=== PATIENT | female | born 1980 | race Caucasian/White ===

== ENCOUNTER 2017-01-05 21:47 | Emergency (ER) | payer BC ==
[~2017-01-05] VITALS: Ht 165.1 cm; Wt 107.0 kg
--- OUTSIDE RECORDS SUMMARY | 2017-01-05 21:52 | XMS REPORT | Continuity Of Care Document ---
Author Author [facility] Organization [facility] Address [address] [place] [address] Phone Care Team Providers Care Digital Media Manager Name Role Phone UNASSIGNED, PHYSICIAN Unavailable Unavailable LESVIA DELACRUZ, E PP OTTONIEL DELACRUZ, S AT Results Lab Results Visit/Account #[id number] (January 26, 2015 12:13pm - January 26, 2015 2:05pm) Test Result Date/Time UA WITH SCREEN FOR CULTURE 5778-6: COLOR,URINE YELLOW January 26, 2015 12:40pm 76423-3: CLARITY,URINE SL CLOUDY January 26, 2015 12:40pm GLUCOSE, URINE(NEGATIVE MG/DL) NEGATIVE MG/DL January 26, 2015 12:40pm URINE BILIRUBIN(NEGATIVE) NEGATIVE January 26, 2015 12:40pm 88227-9: KETONES,URINE(NEGATIVE MG/DL) NEGATIVE MG/DL January 26, 2015 12:40pm 2965-2: URINE SPECIFIC GRAVITY(1.001-1.035) 1.025 January 26, 2015 12:40pm 01851-7: URINE BLOOD(NEGATIVE) NEGATIVE January 26, 2015 12:40pm 2756-5: URINE PH(5.0-9.0) 7.0 January 26, 2015 12:40pm URINE PROTEIN(Less than 20 MG/DL) NEGATIVE MG/DL January 26, 2015 12:40pm URINE UROBILINOGEN(0.2-1.0 MG/DL) 0.2 MG/DL January 26, 2015 12:40pm URINE NITRITE(NEGATIVE) NEGATIVE January 26, 2015 12:40pm 5799-2: LEUKOCYTE ESTERASE ,URINE(NEGATIVE) NEGATIVE January 26, 2015 12:40pm 630-4: URINE CULTURE NOT INDICATED January 26, 2015 12:40pm URINE MICROSCOPIC REQUIRED NO January 26, 2015 12:40pm URINE HCG, QUALITATIVE 2106-3: URINE HCG, QUALITATIVE(NEGATIVE) NEGATIVE January 26, 2015 12:40pm Allergies and Adverse Reactions Allergies and Adverse Reactions Patient Unit Number: [id number] Agent Type Reaction Severity Status NO KNOWN ALLERGIES Drug Allergy Unknown Unknown Active Problem List Problem List Visit/Account #[id number] (January 26, 2015 12:13pm - January 26, 2015 2:05pm) Acute Problems: Code/Condition Comments Documented Start Date Documented Resolved Date Code (s) Back pain with sciatica ICD10: M54.30 Back pain with sciatica ICD9: 724.3 Back pain with sciatica SNOMED: 141881229 Back pain with sciatica Plan of Care Plan Of Care Visit/Account #[id number] (January 26, 2015 12:13pm - January 26, 2015 2:05pm) Patient Instructions Take the Flexeril as directed. Take the [place] as directed. Take prednisone as directed, starting tomorrow. Followup with your regular Dr. for further management, possible MRI if pain persists. Return to emergency department as needed. Home to rest for the remainder of the day. Apply ice to the tender areas for 15-20 minutes 3 times a day for the next 24- 48 hours, then use heat in the same sequence. Vital Signs Vital Signs Visit/Account #[id number] (January 26, 2015 12:13pm - January 26, 2015 2:05pm) Sign First Result Last Result Code(s) Temperature in Fahrenheit Temperature (Fahrenheit): 98.5 [degF] On January 26, 2015 12:12pm Temperature (Fahrenheit): 97.8 [degF] On January 26, 2015 2:05pm 8310-5 Body Temperature Weight in Kilograms Weight (Kilograms): 99 kg On January 26, 2015 12:12pm 3141-9 Weight Measured 55707-5 Body weight measured in kilograms Functional Status Functional and Cognitive Status No Functional Status Data Medications Inpatient/Ordered Medications - Medications administered during hospital visit Visit/Account #[id number] (January 26, 2015 12:13pm - January 26, 2015 2:05pm) Medication Route Sig/Schedule Precondition/Indication Comments/Instructions Codes TORADOL INJ(KETOROLAC TROMETHAMINE) 60 MG/2 ML VIAL Dose: 2 ML INTRAMUSC NOW Rx Order Comments: Order placed as verified: Dose Warnings differ from order selector Dose Warnings differ from order selector Ketorolac Tromethamine 30 MG/ML Injectable Solution (RxNorm): 323754 TORADOL INJ (KETOROLAC TROMETHAMINE) NDC: 23793100325 NORFLEX INJ(ORPHENADRINE CITRATE) 60 MG/2 ML INJECTION Dose: 2 ML INTRAMUSC NOW Rx Order Comments: Order placed as verified: Dose Warnings differ from order selector Dose Warnings differ from order selector Orphenadrine Citrate 30 MG/ML Injectable Solution (RxNorm): 552872 NORFLEX INJ (ORPHENADRINE CITRATE) NDC: 30176226164 Solu-MEDROL INJ(MethylPREDNISolone SOD SUCC) 125 MG/2 ML INJECTION Dose: 2 ML INTRAMUSC NOW Rx Order Comments: Order placed as verified: Dose Warnings differ from order selector Dose Warnings differ from order selector Methylprednisolone 62.5 MG/ML Injectable Solution [Solu-Medrol] (RxNorm): 859185 Solu-MEDROL INJ (MethylPREDNISolone SOD SUCC) NDC: 05492180589 Discharge Medications - Medications that patient should continue to take. Review with physician Visit/Account #[id number] (January 26, 2015 12:13pm - January 26, 2015 2:05pm) Medication Route Sig/Schedule Precondition/Indication Comments/Instructions Codes FLEXERIL(CYCLOBENZAPRINE HCL) 10 MG TAB Dose: 10 MG ORAL 3 TIMES A DAY SPASM Cyclobenzaprine hydrochloride 10 MG Oral Tablet (RxNorm): 021703 FLEXERIL (CYCLOBENZAPRINE HCL) NDC: 37677739837 NORCO 5-325 TABLET(HYDROcodone BIT/ACETAMINOPHEN) 1 TAB TAB Dose: 1-2 TAB ORAL EVERY 4 HOURS PAIN Rx Instructions: 1-2 TAB Acetaminophen 325 MG / Hydrocodone Bitartrate 5 MG Oral Tablet (RxNorm): 418591 NORCO 5-325 TABLET (HYDROcodone BIT/ACETAMINOPHEN) NDC: 36452317741 Prednisone(PredniSONE) 20 MG TAB Dose: 20 MG ORAL DIRECTED Rx Instructions: Take 3 tables daily for the next 5 days. Prednisone 20 MG Oral Tablet (RxNorm): 093869 Prednisone (PredniSONE) [facility] [place]: [id number] History Of Encounters Encounters Visit/Account #[id number] (January 26, 2015 12:13pm - January 26, 2015 2:05pm) Account Status Physican Of Record Reason For Visit Visit Diagnosis Start Date/Time Stop Date/Time ER LESLI ALCAZAR MD BACK PAIN 724.2: LUMBAGO ICD9 Jan 26, 2015 12:13pm Jan 26, 2015 2:05pm History of Procedures Procedure List No procedures recorded. Discharge Instructions Discharge Instructions Visit/Account #[id number] (January 26, 2015 12:13pm - January 26, 2015 2:05pm) DISCHARGE INSTRUCTIONS Physician Documentation Social History Social History No Social History Data. Immunizations Immunizations Patient Unit Number: [id number] Immunizations No immunizations recorded.
--- OUTSIDE RECORDS SUMMARY | 2017-01-05 21:52 | XMS REPORT | Continuity Of Care Document ---
Author Author [facility] Organization [facility] Address [address] [place] [address] Phone Care Team Providers Care Spray Painter Name Role Phone UNASSIGNED, PHYSICIAN Unavailable Unavailable LESVIA DELACRUZ, E PP LAURENCE DELACRUZ, G AT Results Lab Results Visit/Account #[id number] (August 11, 2016 7:23am - August 11, 2016 10:33am ) Test Result Date/Time 99721-0: COMPLETE BLOOD COUNT WITH DIFF WHITE BLOOD COUNT(4.0-11.0 10E3/UL) 9.2 10E3/UL August 11, 2016 7:50am RED BLOOD COUNT(4.00-5.20 10E6/UL) 4.04 10E6/UL August 11, 2016 7:50am HEMOGLOBIN(12.0-16.0 G/DL) 11.6 G/DL August 11, 2016 7:50am HEMATOCRIT(36.0-46.0 %) 35.1 % August 11, 2016 7:50am MEAN CORPUSCULAR VOLUME(82.0-100.0 FL) 86.9 FL August 11, 2016 7:50am 69455-0: MEAN CORPUSCULAR HEMOGLOBIN(26.0-34.0 PG) 28.7 PG August 11, 2016 7:50am MEAN CORPUSCULAR HGB CONC(31.5-36.5 G/DL) 33.0 G/DL August 11, 2016 7:50am RED CELL DISTRIBUTION WIDTH(11.5-14.5 %) 14.1 % August 11, 2016 7:50am 777-3: PLATELET COUNT(150-450 10E3/UL) 255 10E3/UL August 11, 2016 7:50am MEAN PLATELET VOLUME(8.2-12.4 FL) 12.1 FL August 11, 2016 7:50am 770-8: NEUTROPHILS % (AUTO)(40-70 %) 78 % August 11, 2016 7:50am LYMPHOCYTES % (AUTO)(15-45 %) 16 % August 11, 2016 7:50am 5905-5: MONOCYTES % (AUTO)(2-10 %) 6 % August 11, 2016 7:50am 713-8: EOSINOPHILS % (AUTO)(0-6 %) 1 % August 11, 2016 7:50am 706-2: BASOPHILS % (AUTO)(0-1 %) 0 % August 11, 2016 7:50am 04695-6: IMMATURE GRANS % (AUTO)(0-0 %) 0 % August 11, 2016 7:50am NUCLEATED RBCS (AUTO)(0-0 %) 0 % August 11, 2016 7:50am 751-8: NEUTROPHILS # (AUTO)(2.5-7.5 10E3/UL) 7.2 10E3/UL August 11, 2016 7:50am 46954-9: LYMPHOCYTES # (AUTO)(1.0-4.0 10E3/UL) 1.5 10E3/UL August 11, 2016 7:50am 742-7: MONOCYTES # (AUTO)(0.2-0.8 10E3/UL) 0.5 10E3/UL August 11, 2016 7:50am 711-2: EOSINOPHILS # (AUTO)(0.0-0.4 10E3/UL) 0.1 10E3/UL August 11, 2016 7:50am 704-7: BASOPHILS # (AUTO)(0.0-0.2 10E3/UL) 0.0 10E3/UL August 11, 2016 7:50am IMMATURE GRANS # (AUTO)(0.0-0.0 10E3/UL) 0.0 10E3/UL August 11, 2016 7:50am DIFF TYPE AUTOMATED August 11, 2016 7:50am 88311-7: URINALYSIS 5778-6: COLOR,URINE YELLOW August 11, 2016 9:35am 66413-7: CLARITY,URINE CLEAR August 11, 2016 9:35am GLUCOSE, URINE(NEGATIVE MG/DL) NEGATIVE MG/DL August 11, 2016 9:35am URINE BILIRUBIN(NEGATIVE) NEGATIVE August 11, 2016 9:35am KETONES,URINE(NEGATIVE MG/DL) NEGATIVE MG/DL August 11, 2016 9:35am URINE SPECIFIC GRAVITY(1.001-1.035) 1.015 August 11, 2016 9:35am 17703-2: URINE BLOOD(NEGATIVE) NEGATIVE August 11, 2016 9:35am 2756-5: URINE PH(5.0-9.0) Greater than or equal to 9.0 August 11, 2016 9:35am URINE PROTEIN(Less than 20 MG/DL) NEGATIVE MG/DL August 11, 2016 9:35am 12187-2: URINE UROBILINOGEN(0.2-1.0 MG/DL) 0.2 MG/DL August 11, 2016 9:35am URINE NITRITE(NEGATIVE) NEGATIVE August 11, 2016 9:35am 5799-2: LEUKOCYTE ESTERASE ,URINE(NEGATIVE) NEGATIVE August 11, 2016 9:35am URINE MICROSCOPIC REQUIRED NO August 11, 2016 9:35am 28739-6: COMPLETE METABOLIC PROFILE GLUCOSE(70-110 MG/DL) 105 MG/DL August 11, 2016 7:50am BLOOD UREA NITROGEN(6-20 MG/DL) 12 MG/DL August 11, 2016 7:50am CREATININE(0.50-1.20 MG/DL) 0.68 MG/DL August 11, 2016 7:50am 20793-0: EST GLOMERULAR FILTRATION RATE(Greater than or equal to 60) Greater than or equal to 60 Result Comments: If the patient is of -[place] descent/extraction multiply the eGFR value by 1.212 to obtain the actual eGFR. >=60 mg/dL Normal 30-59 mg/dL Moderate Kidney Disease 15-29 mg/dL Severe Kidney Disease <15 mg/dL Kidney Failure August 11, 2016 7:50am BUN CREATININE RATIO(10.0-20.0 RATIO) 18.0 RATIO August 11, 2016 7:50am SODIUM(135-145 MMOL/L) 134 MMOL/L August 11, 2016 7:50am POTASSIUM(3.6-5.0 MMOL/L) 4.3 MMOL/L August 11, 2016 7:50am CHLORIDE(101-111 MMOL/L) 107 MMOL/L August 11, 2016 7:50am CO2(21-31 MMOL/L) 21 MMOL/L August 11, 2016 7:50am ANION GAP(8-18) 10 August 11, 2016 7:50am OSMO CALCULATED(270.0-290.0) 268.4 August 11, 2016 7:50am CALCIUM(8.5-10.5 MG/DL) 8.2 MG/DL August 11, 2016 7:50am BILIRUBIN,TOTAL(0.1-1.2 MG/DL) 1.4 MG/DL August 11, 2016 7:50am ALKALINE PHOSPHATASE(42-121 IU/L) 126 IU/L August 11, 2016 7:50am ASPARTATE AMINO TRANSFERASE(10-42 IU/L) 445 IU/L August 11, 2016 7:50am ALANINE AMINOTRANSFERASE(10-60 IU/L) 242 IU/L August 11, 2016 7:50am TOTAL PROTEIN(6.4-8.2 G/DL) 7.4 G/DL August 11, 2016 7:50am ALBUMIN(3.5-5.5 G/DL) 3.7 G/DL August 11, 2016 7:50am GLOBULIN(2.4-3.6) 3.7 August 11, 2016 7:50am ALBUMIN/GLOBULIN RATIO(0.9-1.8 RATIO) 1.0 RATIO August 11, 2016 7:50am 60169-4: [place] I 63539-8: CARDIAC TROPONIN I(0.01-0.04 NG/ML) Less than 0.01 NG/ML Result Comments: REFERENCE RANGES: NEGATIVE < 0.04 NG/ML POSSIBLE MYCARDIAL INVOLVEMENT >/=0.04 NG/ML INTERPRET TROPONIN I RESULT IN LIGHT OF THE TOTAL CLINICAL PRESENTATION INCLUDING CLINICAL HISTORY. ANY CONDITION RESULTING IN MYOCARDIAL INJURY CAN POTENTIALLY ELEVATE TROPONIN I LEVELS ABOVE EXPECTED NORMAL RANGES. NOTE NEW REFERENCE RANGE August 11, 2016 7:50am SERUM HCG, QUALITATIVE 0-: SERUM HCG, QUALITATIVE(NEGATIVE) NEGATIVE August 11, 2016 7:50am Allergies and Adverse Reactions Allergies and Adverse Reactions Patient Unit Number: [id number] Agent Type Reaction Severity Status NO KNOWN ALLERGIES Drug Allergy Unknown Unknown Active Problem List Problem List Visit/Account #[id number] (August 11, 2016 7:23am - August 11, 2016 10:33am ) Acute Problems: Code/Condition Comments Documented Start Date Documented Resolved Date Code (s) Mid-back pain, acute ICD10: M54.9 Acute mid back pain ICD9: 724.5 Acute mid back pain SNOMED: 482258096 Acute mid back pain Plan of Care Plan Of Care Visit/Account #[id number] (August 11, 2016 7:23am - August 11, 2016 10:33am ) Patient Instructions Follow with her primary care DrEcho as scheduled next week. Take pain medications and muscle relaxants as needed. Take ibuprofen 600 mg by mouth 3 times a day with food for 5 days. Ice to the area of pain. Return to the emergency room if symptoms worsens or has any concern. Vital Signs Vital Signs Visit/Account #[id number] (August 11, 2016 7:23am - August 11, 2016 10:33am ) Sign First Result Last Result Code(s) Temperature in Fahrenheit Temperature (Fahrenheit): 97.8 [degF] On August 11, 2016 7:22am Temperature (Fahrenheit): 97.8 [degF] On August 11, 2016 10:29am 8310-5 Body Temperature Weight in Kilograms Weight (Kilograms): 109.7 kg On August 11, 2016 7:22am 3141-9 Weight Measured 76018-5 Body weight measured in kilograms Functional Status Functional and Cognitive Status No Functional Status Data Medications Inpatient/Ordered Medications - Medications administered during hospital visit Visit/Account #[id number] (August 11, 2016 7:23am - August 11, 2016 10:33am ) Medication Route Sig/Schedule Precondition/Indication Comments/Instructions Codes TORADOL INJ(KETOROLAC TROMETHAMINE) 30 MG/ML INJECTION Dose: 1 ML INTRAVEN NOW Label Comments: DO NOT EXCEED 5 DAYS OF THERAPY 1 ML Ketorolac Tromethamine 30 MG/ML Injection (RxNorm): 4092439 TORADOL INJ (KETOROLAC TROMETHAMINE) NDC: 73016885529 VALIUM INJ(DIAZEPAM) 10 MG/2 ML INJECTION Dose: 0.4 ML INTRAVEN NOW Label Comments: MAY INCREASE FALL RISK Diazepam 5 MG/ML Injectable Solution (RxNorm): 927759 VALIUM INJ (DIAZEPAM) NDC: 12612062188 Discharge Medications - Medications that patient should continue to take. Review with physician Visit/Account #[id number] (August 11, 2016 7:23am - August 11, 2016 10:33am ) Medication Route Sig/Schedule Precondition/Indication Comments/Instructions Codes NORCO 5-325 TABLET(HYDROcodone BIT/ACETAMINOPHEN) 1 TAB TABLET Dose: 1 TAB ORAL EVERY 4 HOURS PAIN Rx Instructions: 1-2 TAB Acetaminophen 325 MG / Hydrocodone Bitartrate 5 MG Oral Tablet (RxNorm): 748332 NORCO 5-325 TABLET (HYDROcodone BIT/ACETAMINOPHEN) NDC: 87096805781 Flexeril(CYCLOBENZAPRINE HCL) 10 MG TAB Dose: 1 TAB ORAL TWICE A DAY SPASM Cyclobenzaprine hydrochloride 10 MG Oral Tablet (RxNorm): 942018 Flexeril (CYCLOBENZAPRINE HCL) NDC: 43637958906 History Of Encounters Encounters Visit/Account #[id number] (August 11, 2016 7:23am - August 11, 2016 10:33am ) Account Status Physican Of Record Reason For Visit Visit Diagnosis Start Date/Time Stop Date/Time ER KYMBERLY DANG MD MID UPPER BACK PAIN WORSE WITH MOVEMENT Not Available Aug 11, 2016 7:23am Aug 11, 2016 10:33am History of Procedures Procedure List No procedures recorded. Discharge Instructions Discharge Instructions Visit/Account #[id number] (August 11, 2016 7:23am - August 11, 2016 10:33am ) DISCHARGE INSTRUCTIONS Physician Documentation Social History Social History No Social History Data. Immunizations Immunizations Patient Unit Number: [id number] Immunizations No immunizations recorded.
--- OUTSIDE RECORDS SUMMARY | 2017-01-05 21:52 | XMS REPORT | Continuity Of Care Document ---
Author Author [facility] Organization [facility] Address [address] [place] [address] Phone Care Team Providers Care Paste Maker Name Role Phone ZIYAD DELACRUZ, STEF AT LESVIA DELACRUZ, MADALYN Steven PP Results Lab Results Visit/Account #[id number] (October 29, 2013 2:50pm - October 29, 2013 5:05pm) Test Result Reported Date/Time CBC WITH REFLEXED MANUAL DIFF WHITE BLOOD COUNT(4.0-11.0 10E3/UL) 11.4 10E3/UL October 29, 2013 4:20pm RED BLOOD COUNT(3.80-5.20 10E6/UL) 4.64 10E6/UL October 29, 2013 4:20pm HEMOGLOBIN(12.0-16.0 G/DL) 13.8 G/DL October 29, 2013 4:20pm HEMATOCRIT(36.0-48.0 %) 40.6 % October 29, 2013 4:20pm MEAN CORPUSCULAR VOLUME(80.0-100.0 FL) 87.5 FL October 29, 2013 4:20pm MEAN CORPUSCULAR HEMOGLOBIN(27.0-34.0 PG) 29.7 PG October 29, 2013 4:20pm MEAN CORPUSCULAR HGB CONC(33.0-37.0 G/DL) 34.0 G/DL October 29, 2013 4:20pm RED CELL DISTRIBUTION WIDTH(11.0-15.0 %) 12.9 % October 29, 2013 4:20pm 777-3: PLATELET COUNT(130-400 10E3/UL) 363 10E3/UL October 29, 2013 4:20pm MEAN PLATELET VOLUME(7.4-11.0 FL) 10.6 FL October 29, 2013 4:20pm DIFF TYPE MANUAL October 29, 2013 4:20pm NEUTROPHIL % (MANUAL)(40-70 %) 71 % October 29, 2013 5:31pm LYMPHOCYTES % (MANUAL)(15-45 %) 23 % October 29, 2013 5:31pm MONOCYTES % (MANUAL)(2-10 %) 6 % October 29, 2013 5:31pm EOSINOPHILS % (MANUAL)(0-6 %) 0 % October 29, 2013 4:25pm BASOPHILS % (MANUAL)(0-1 %) 0 % October 29, 2013 4:25pm NUCLEATED RBCS (MANUAL)(0-0 %) 0 % October 29, 2013 4:25pm NEUTROPHILS # (MANUAL)(2.5-7.5 10E3/UL) 8.1 10E3/UL October 29, 2013 5:31pm LYMPHOCYTES # (MANUAL)(1.0-4.0 10E3/UL) 2.6 10E3/UL October 29, 2013 5:31pm MONOCYTES # (MANUAL)(0.2-0.8 10E3/UL) 0.7 10E3/UL October 29, 2013 5:31pm BASOPHILS # (MANUAL)(0.0-0.2 10E3/UL) 0.0 10E3/UL October 29, 2013 4:25pm PLATELET ESTIMATE ADEQUATE October 29, 2013 5:31pm WBC MORPHOLOGY COMMENT NORMAL October 29, 2013 4:25pm RBC MORPHOLOGY COMMENT NORMAL October 29, 2013 4:25pm PLATELET MORPHOLOGY COMMENT NORMAL October 29, 2013 4:25pm Microbiology Results Visit/Account #[id number] (October 29, 2013 2:50pm - October 29, 2013 5:05pm) Procedure Result Specimen #: [id number] GROUP A STREP SCREEN Result Instance On October 29, 2013 3:49pm Source: THROAT Result Prompts: GROUP A STREP SCREEN NEGATIVE FOR GROUP A STREP ANTIGEN Specimen #: [id number] THROAT CULTURE Result Instance On October 31, 2013 9:27am Source: THROAT Special Result Comments: USUAL MIXED [place]. NO BETA HEMOLYTIC STREPTOCOCCUS ISOLATED. Result Procedures Visit/Account #[id number] (October 29, 2013 2:50pm - October 29, 2013 5:05pm) Department: DIAGNOSTIC IMAGING [ Report: Diagnostic Imaging Report ] Diagnostic Imaging Report Dictated By: WILTON COLON MD Signed By: WILTON COLON MD Method of Transportation: A Pertinent Items in Place: N What ER Room is the patient in?: 6 Currently : N Reason for exam: cough fever for [address] [address] ~Department of Radiology~ Patient: CHUN CAMILO R Unit/MR#: [id number] : 1980 Age: 33 Sex: F Report#: [id number] Room#: Location: ED Order Dr: CARLITO GUAJARDO APRN Tech: Stef Can Attn: Dr: Signed DIAGNOSTIC XRAY Dt/Tm of Exam: 10/29/13 1524 Exam Description: XR CHEST 2V Reason for Exam: cough fever for 2 weeks cc: MADALYN LAKHANI MD, TERESA K APRN [facility] ~ EXAMINATION: TWO-VIEW CHEST SITE OF SERVICE: [facility]. SITE OF DICTATION: [facility]. HISTORY: Cough and fever. FINDINGS: No focal parenchymal consolidations or pleural effusions are seen. The heart seems within normal limits. Patient may show minimal perihilar prominence possibly due to a virus. IMPRESSION: Perhaps just minimal perihilar prominence. No significant focal parenchymal consolidations noted. The heart is not enlarged. Job [id number] Transcribed By: BREANNA 10/29/13 1649 Dictated By: WILTON COLON MD Signed By: WILTON COLON MD 10/29/13 1616 Vital Signs Vital Signs Visit/Account #[id number] (October 29, 2013 2:50pm - October 29, 2013 5:05pm) Label First Result Last Result 3141-9: Weight Measured 220 lbs October 29, 2013 2:48pm 99.031041 kg October 29, 2013 2:48pm 8310-5: Body Temperature 97.5 degF October 29, 2013 2:48pm 8310-5: Fahrenheit Body Temperature 98.5 [degF] October 29, 2013 5:05pm 8480-6: BP Systolic 135/ mmHg October 29, 2013 2:48pm 57/ mm[Hg] October 29, 2013 5:05pm 8867-4: Heart Rate 94 /min October 29, 2013 2:48pm 67 /min October 29, 2013 5:05pm 9279-1: Respiratory Rate 16 /min October 29, 2013 2:48pm 20 /min October 29, 2013 5:05pm Unmapped Query Mnemonic (RESP.SAT) Saturation 95 % October 29, 2013 2:48pm 95 % October 29, 2013 2:48pm Ordered Medications Ordered Medications Visit/Account #[id number] (October 29, 2013 2:50pm - October 29, 2013 5:05pm) Medication Dose Route Sig/Schedule Precondition/Indication Comments/ Instructions NDC IV Medication Carriers: NORMAL SALINE(SODIUM CHLORIDE) 1000 ML INJECTION 1000 ML IV: INTRAVEN .Q1H1M (Rate: 999 MLS/HR Duration: 1 HR 1 MIN) Rx Order Comments: Order placed as verified: Dose Warnings differ from enrobing machine corder Carriers: NORMAL SALINE (SODIUM CHLORIDE): 88915658816 VENTOLIN 0.5% NEB(ALBUTEROL) 2.5 MG/0.5 ML INHALER 2.5 MG INH: INHALED NOW: NOW Rx Order Comments: Order placed as verified: Dose Warnings differ from enrobing machine corder VENTOLIN 0.5% NEB (ALBUTEROL): 58187207022 ATROVENT 0.02% NEB(IPRATROPIUM BROMIDE) 0.5 MG/2.5 ML SOLUTION 0.5 MG INH: INHALED NOW: NOW Rx Order Comments: Order placed as verified: Dose Warnings differ from enrobing machine corder ATROVENT 0.02% NEB (IPRATROPIUM BROMIDE): 71390228903 Discharge Medications Discharge Medications Visit/Account #[id number] (October 29, 2013 2:50pm - October 29, 2013 5:05pm) Medication Dose Route Sig/Schedule Precondition/Indication Comments/ Instructions NDC DELTASONE(PredniSONE) 20 MG TAB 20 MG PO: ORAL TIDWM: 3 TIMES DAILY WITH MEALS DELTASONE (PredniSONE): 05849713048 History Of Encounters Encounters Visit/Account #[id number] (October 29, 2013 2:50pm - October 29, 2013 5:05pm) No reports exist, or have been identified for inclusion with this encounter.
[2017-01-05 21:58] VITALS: TEMP 97.5; Ht 165.1 cm; Wt 107.0 kg
[2017-01-05] MEDS ORDERED: ORPHENADRINE 60mg/2ml INJECTION IM ONE (22:00)
[2017-01-05] MEDS ORDERED: KETOROLAC 60mg/2ml INJECTION IM ONE (22:00)
--- NOTE | 2017-01-05 22:04 | ERPDOC ---
Departure Disposition Decision Date: Jan 05, 2017 Disposition Decision Time: 23:14 Disposition: 01 DISCHARGED HOME, SELF-CARE Impression Impression Impression: Primary Impression: Muscle spasm of back Severity: Moderate Condition: Stable Seen By: Mid-level only Patient Instructions: Muscle Cramp (ED) Problems/Meds/Labs Reviewed?: Yes Medications reviewed and manag: Yes Additional Instructions: Take you medications that you have at home as prescribed. May use warm packs or massage as needed. I do want you to follow up with your primary care provider for reevaluation this week so that you can find a prevention or solution for your back spasms. Follow up care ordered?: Yes Mental Status: Alert HPI - Back Pain General Chief Complaint: Back Pain or Injury Stated Complaint: CHEST PAIN Time Seen by Provider: 21:57 Source: patient Exam Limitations: no limitations HPI - Back Pain Initial Comments [place] today and had onset of bilateral upper back pain. This persisted for the duration of the walk around the mall. Started around 1700. She has had pain like this in the past with upper back muscle spasms. Did take some rapid release Tylenol for the pain but it has not helped so far. She denies any fever or chills. Pain radiates to her chest and she feels a little SOA when taking a deep breath due to the pain. Occurred At: other (While walking around the mall) Onset/Timing: Rapid Duration: 4-6 hrs (started around 1700) Severity/Quality: moderate Location: T-spine Method of Injury/Context: unknown Associated Sypmtoms: muscle spasms, DENIES: fever, loss of bladder control, loss of bowel control, lower back pain, numbness in legs/feet, sensory/motor loss, tingling in legs/feet, weakness Hx of Similar Symptoms: Yes Allergies: Coded Allergies: No Known Allergies (Unverified , 01/05/17) Review of Systems Constitutional Constitutional: DENIES: chills, dizziness, fatigue, fever, weakness Cardiovascular Cardiac: chest pain, DENIES: dyspnea on exertion, orthopnea Rhythm/Rate: DENIES: irregular beat, palpitations Vascular: DENIES: pedal edema, unilateral swelling Pulmonary Respiratory: DENIES: cough, dyspnea, sputum, tachypnea GI Upper Abdomen: DENIES: nausea, pain, vomiting Lower Abdomen: DENIES: constipation, diarrhea, pain Musculoskeletal General: cramps (bilateral upper back), spasm, DENIES: joint pain, joint swelling, tenderness Integumentary Skin: DENIES: color change, rash Neurological General: DENIES: headache, numbness, tingling, weakness Physical Exam General General Nourishment: well nourished, well developed, appears stated age, no acute distress, adult General Body Habitus: well groomed Vitals and Pain First Documented Vital Signs Date Time Temp Pulse Resp B/P Pulse Ox O2 Delivery O2 Flow Rate FiO2 01/05/17 21:58 97.5 71 18 135/74 100 Room Air Weight: Kilograms: Height (feet): Height (inches): Triage Pain Scale: RN VS reviewed by Provider: Yes Normal Exams: Neck: Full range of motion, without adenopathy, JVD, bruits or thyromegaly Chest/Resp: Clear all rivero, with good airflow, and symmetry bilaterally CV: Regular rate and rhythm, without murmur or gallop, Pulses 2+ all extremities, capillary refill, <2 seconds all ext., no pedal edema noted Abdomen: Bowel sounds positive, soft, non-tender, non-distended, no hepatosplenomegaly, masses or bruits noted Integumentary: No rashes, hives, or bruising noted Neurologic: Patient is alert, and oriented Psychiatric: Patient exhibits, appropriate attention, emotion and affect Musculoskeletal (brief) Musculoskeletal Brief: FOUND: tenderness (Moderate TTP in the bilateral upper back musculature lateral to the spine. Parascapular. ) Differential Diagnoses Considering: Thoracic Sprain, Thoracic Strain, Other (muscle spasm, AMI, pneumothorax) Progress Results/Orders Orders Procedure Category Date Status Time EKG EKG 01/05/17 Logged Orphenadrine (Norflex) PHA 01/05/17 Complete 22:00 Ketorolac (Toradol) PHA 01/05/17 Complete 22:00 Hydromorphone PHA 01/05/17 Complete (Dilaudid) 22:45 Medications Current ED Medications Orphenadrine Citrate (Norflex) 60 mg O ONCE IM Last administered on 01/05/17 22:14; Start 01/05/17 at 22:00; Stop 01/05/17 at 22:02; Status DC Ketorolac Tromethamine (Toradol) 60 mg O ONCE IM Last administered on 22:16; Start 01/05/17 at 22:00; Stop 01/05/17 at 22:02; Status DC Hydromorphone HCl (Dilaudid) 0.5 mg O ONCE IM Last administered on 01/05/17 22 :56; Start 01/05/17 at 22:45; Stop 01/05/17 at 22:46; Status DC Progress Progress Is feeling much better. She does have pain medication at home as well as muscle relaxers. Will go ahead and dismiss to home. She does use a heating pad and does ask how she can prevent this from happening. I do recommend that she follow up with her PCP and see about possible PT or other treatment modalities. CARLITO STEEN APRN Jan 05, 2017 22:04
[2017-01-05] MEDS ORDERED: HYDROMORPHONE 2mg/ml INJECTION IM ONE (22:45)
[2017-01-05 23:23] VITALS: BP 112/65; PULSE 59; RESP 18; O2SAT 100
[2017-01-05] MEDS ORDERED: LEVO88TA7 PO (23:28)
== END 2017-01-05 23:23 | disposition home or self-care (01) ==
LOC: ED 21:47
DX: M62.830 Muscle spasm of back (principal); R07.9 Chest pain, unspecified; R06.02 Shortness of breath
CPT/HCPCS: 96372; 99283; J1170; J1885; J2360; 93005